=== PATIENT | male | born 1985 | race Caucasian/White ===

== ENCOUNTER 2017-10-13 16:29 | Emergency (ER) | payer SELFPAY ==
[2017-10-13] MEDS ORDERED: Ibuprofen TAB* 800 MG PO ONE (17:11)
--- NOTE | 2017-10-13 17:50 | RAD ---
Indication: Right forearm injury. 2 views of the right forearm demonstrates no fracture. No other bone or joint abnormality is noted. IMPRESSION: No fracture of the right forearm is noted.
--- NOTE | 2017-10-13 17:51 | RAD ---
Indication: Right hand pain. 4 views of the right hand are reviewed. There is no fracture or dislocation noted. No other bone or joint abnormality is noted. IMPRESSION: No fracture of the right hand is noted.
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
[2017-10-13 18:19] VITALS: BP 144/80
== END 2017-10-13 18:25 | disposition home or self-care (01) ==
LOC: ED 16:29
DX: S50.11XA Contusion of right forearm, initial encounter (principal); S63.91XA Sprain of unspecified part of right wrist and hand, initial encounter; W22.8XXA Striking against or struck by other objects, initial encounter; Y93.89 Activity, other specified; Y92.89 Other specified places as the place of occurrence of the external cause; I10 Essential (primary) hypertension
CPT/HCPCS: 99281; A9270-GY